=== PATIENT | female | born 2000 | race Caucasian/White ===

== ENCOUNTER 2023-01-26 13:24 | Outpatient (CLI) | payer OTHER, SELFPAY | END 2023-01-26 13:25 | disposition home or self-care (01) | PROVIDERS: PCP Physician Assistant Medical; Visit Provider Family Medicine | DX: Z00.00 Encounter for general adult medical examination without abnormal findings (principal); R22.1 Localized swelling, mass and lump, neck; N88.8 Other specified noninflammatory disorders of cervix uteri; Z11.3 Encounter for screening for infections with a predominantly sexual mode of transmission | CPT/HCPCS: 80053; 84443 ==

== ENCOUNTER 2024-02-29 19:22 | Outpatient (CLI) | payer OTHER, SELFPAY | END 2024-02-29 19:23 | disposition home or self-care (01) | LOC: NFLDREF 03-01 06:42 | PROVIDERS: PCP Family Medicine; Referring Provider Family Medicine; Visit Provider Family Medicine | DX: L70.0 Acne vulgaris (principal); Z13.228 Encounter for screening for other metabolic disorders | CPT/HCPCS: 80053 ==